=== PATIENT | female | born 1975 ===

== ENCOUNTER 2017-03-07 10:29 | Emergency (ER) | payer SELFPAY ==
[2017-03-07 10:33] VITALS: TEMP 98; O2SAT 100; BMI 30.9
--- NOTE | 2017-03-07 11:11 | ED PDOC ---
HPI: Back Time Seen by Provider: 03/07/17 10:41 Chief Complaint (Nursing): Back Pain Chief Complaint (Provider): Back Pain History Per: Patient History/Exam Limitations: no limitations Onset/Duration Of Symptoms: Days Current Symptoms Are (Timing): Still Present Additional Complaint(s): 41 y/o female presents to the emergency department with a complaint of back pain bilaterally since Tuesday (5 days). She reports that the pain is worse with movement. She is also complaining of suprapubic abdominal pain and dysuria. Reports she cannot identify any exacerbating factors. Denies fever, nausea, vomiting, diarrhea, and constipation. Past Medical History Reviewed: Historical Data, Nursing Documentation, Vital Signs Vital Signs: Last Vital Signs Temp 98 F 03/07/17 10:32 Pulse 83 03/07/17 10:32 Resp BP 143/104 H 03/07/17 10:32 Pulse Ox 100 03/07/17 10:32 - Medical History PMH: HTN - Family History Family History: States: Unknown Family Hx - Home Medications Home Medications: Ambulatory Orders Medication Instructions Recorded Nitrofurantoin Macrocrystals 100 mg PO BID #14 cap 01/14/15 [Macrobid] Sulfamethoxazole/Trimethoprim 1 tab PO BID #10 tab 03/07/17 [Bactrim DS 800 mg-160 mg] - Allergies Allergies/Adverse Reactions: Allergies Allergy/AdvReac Type Severity Reaction Status Date / Time No Known Allergies Allergy Verified 01/14/15 12:20 Review of Systems ROS Statement: Except As Marked, All Systems Reviewed And Found Negative Constitutional: Negative for: Fever Cardiovascular: Negative for: Chest Pain, Palpitations Respiratory: Negative for: Cough Gastrointestinal: Positive for: Abdominal Pain (Suprapubic region). Negative for: Nausea, Vomiting, Diarrhea, Constipation Genitourinary Female: Positive for: Dysuria. Negative for: Frequency, Incontinence, Vaginal Discharge, Vaginal Bleeding Musculoskeletal: Positive for: Back Pain (b/l). Negative for: Neck Pain Neurological: Negative for: Weakness, Numbness, Altered Mental Status, Headache Physical Exam - Reviewed Nursing Documentation Reviewed: Yes Vital Signs Reviewed: Yes - Physical Exam Appears: Positive for: Well, Non-toxic, No Acute Distress Head Exam: Positive for: ATRAUMATIC, NORMAL INSPECTION, NORMOCEPHALIC Skin: Positive for: Normal Color, Warm, Dry Neck: Positive for: Normal, Supple Cardiovascular/Chest: Positive for: Regular Rate, Rhythm. Negative for: Murmur Respiratory: Positive for: Normal Breath Sounds. Negative for: Accessory Muscle Use, Respiratory Distress Gastrointestinal/Abdominal: Positive for: Normal Exam, Soft. Negative for: Tenderness Back: Positive for: Normal Inspection, Muscle Spasm, Other (Paraspinal muscle tenderness). Negative for: L CVA Tenderness, R CVA Tenderness, Vertebral Tenderness, Decreased ROM Extremity: Positive for: Normal ROM Neurologic/Psych: Positive for: Alert, community services manager II-XII (Intact), Oriented (x3), Gait (Steady). Negative for: Motor/Sensory Deficits - ECG O2 Sat by Pulse Oximetry: 100 (RA) Pulse Ox Interpretation: Normal Medical Decision Making Medical Decision Making: Time: 10:46 Initial impression: uti Initial plan: --Toradol 30 mg IM --Urine Preg --Urinalysis --Reevaluation Scribe Attestation: Documented by Hattie Starr, acting as a scribe for Gloria Nicole MD. Provider Scribe Attestation: All medical record entries made by the Scribe were at my direction and personally dictated by me. I have reviewed the chart and agree that the record accurately reflects my personal performance of the history, physical exam, medical decision making, and the department course for this patient. I have also personally directed, reviewed, and agree with the discharge instructions and disposition. 11:30AM UA positive for leukocytes, bacteria, wbc and rbc. Patient had renal and bladder ultrasound on 02/26/17 that was negative (ordered due to hematuria). Patient is afebrile and well appearing. Ucx sent. Will dc with antibiotics. Disposition - Clinical Impression Clinical Impression: UTI (urinary tract infection) - Disposition Disposition: Routine/Home Disposition Time: 11:33 Condition: GOOD Additional Instructions: Take full course of antibiotics. Return to ED if condition worsens. Return to ED if condition worsens. Prescriptions: Sulfamethoxazole/Trimethoprim [Bactrim DS 800 mg-160 mg] 1 tab PO BID #10 tab Instructions: Urinary Tract Infection in Women (ED) Forms: [employer] (Faroese) Print Language: AZERI
[2017-03-07 11:26] LABS: RBC URINE 23 /hpf (0-3); URINE BACTERIA RARE (<OCC); URINE BILIRUBIN NEGATIVE (NEGATIVE); URINE BLOOD LARGE (NEGATIVE); URINE COLOR YELLOW (YELLOW); URINE GLUCOSE (UA) NEG (Normal); URINE KETONE NEGATIVE (NEGATIVE); URINE LEUKOCYTE ESTERASE MOD Leu/uL (Negative); URINE PROTEIN NEGATIVE (NEGATIVE); URINE UROBILINOGEN 0.2-1.0 mg/dL (0.2-1.0); WBC URINE 16 /hpf (0-5)
[2017-03-07] MEDS ORDERED: Tmp-Smz 800 mg-160 mg DS Tab PO STA (11:41)
[2017-03-07 11:55] VITALS: BP 138/88; PULSE 75; RESP 14
[2017-03-07] MEDS ORDERED: Tmp-Smz 800 mg-160 mg DS Tab PO SCH (21:00)
== END 2017-03-07 11:51 | disposition home or self-care (01) ==
LOC: H.ER 10:29
DX: N39.0 Urinary tract infection, site not specified (principal)
CPT/HCPCS: 81003; 81025; 96372; 99283; J1885

== ENCOUNTER 2018-08-02 10:04 | Emergency (ER) | payer SELFPAY ==
[2018-08-02 10:04] VITALS: BMI 30.9
[2018-08-02 10:09] VITALS: PULSE 74; RESP 18; TEMP 98.4
[2018-08-02 10:29] VITALS: O2SAT 98
--- NOTE | 2018-08-02 10:43 | ED PDOC ---
HPI: Back Time Seen by Provider: 08/02/18 10:31 Chief Complaint (Nursing): Lower Extremity Problem/Injury History Per: Patient Onset/Duration Of Symptoms: Days (3) Current Symptoms Are (Timing): Still Present Quality Of Discomfort: Aching Severity: Moderate Pain Scale Rating Of: 4 Previous Symptoms: Back Pain Associated Symptoms: None Exacerbating Factor(s): Movement Additional Complaint(s): Right sided low back pain radiating to buttock since Tuesday. Denies injury or heavy lifting. C/o dysuria but denies fever or incontinence. Past Medical History Vital Signs: Last Vital Signs Temp 98.4 F 08/02/18 10:08 Pulse 74 08/02/18 10:08 Resp 18 08/02/18 10:08 BP 137/91 H 08/02/18 10:08 Pulse Ox 98 08/02/18 10:26 - Medical History PMH: HTN - Family History Family History: States: Unknown Family Hx - Home Medications Home Medications: Ambulatory Orders Medication Instructions Recorded Nitrofurantoin Macrocrystals 100 mg PO BID #14 cap 01/14/15 [Macrobid] Sulfamethoxazole/Trimethoprim 1 tab PO BID #10 tab 03/07/17 [Bactrim DS 800 mg-160 mg] Cyclobenzaprine [Cyclobenzaprine 10 mg PO TID #10 tab 08/02/18 HCl] Naproxen [Naprosyn] 500 mg PO Q12H #20 tab 08/02/18 - Allergies Allergies/Adverse Reactions: Allergies Allergy/AdvReac Type Severity Reaction Status Date / Time No Known Allergies Allergy Verified 08/02/18 10:26 Review of Systems Constitutional: Negative for: Fever Genitourinary Female: Positive for: Dysuria Musculoskeletal: Positive for: Back Pain Neurological: Negative for: Weakness, Numbness Physical Exam - Physical Exam Appears: Positive for: Non-toxic, Uncomfortable Skin: Positive for: Normal Color, Warm, DRY Cardiovascular/Chest: Positive for: Regular Rate, Rhythm Respiratory: Positive for: CNT, Normal Breath Sounds Gastrointestinal/Abdominal: Positive for: Normal Exam, Soft. Negative for: Tenderness Back: Positive for: Normal Inspection, Muscle Spasm (Right side). Negative for: L CVA Tenderness, R CVA Tenderness, Vertebral Tenderness Neurologic/Psych: Positive for: Alert, Oriented. Negative for: Motor/Sensory Deficits - ECG O2 Sat by Pulse Oximetry: 98 - Progress Re-evaluation Time: 15:14 Condition: Improved Disposition - Clinical Impression Clinical Impression: Back sprain - Patient ED Disposition Is Patient to be Admitted: No Counseled Patient/Family Regarding: Studies Performed, Diagnosis, Need For Followup, Rx Given - Disposition Referrals: [facility] [Outside] Disposition: Routine/Home Disposition Time: 15:15 Condition: FAIR Prescriptions: Cyclobenzaprine [Cyclobenzaprine HCl] 10 mg PO TID #10 tab Naproxen [Naprosyn] 500 mg PO Q12H #20 tab Instructions: Low Back Pain in Adults Forms: [facility] (Kinyarwanda) Print Language: UGANDAN
--- NOTE | 2018-08-02 13:48 | CT ---
Date of service: 08/02/2018 PROCEDURE: CT Abdomen and Pelvis without intravenous contrast HISTORY: r/o kidney stone COMPARISON: 03/08/2017 renal ultrasound TECHNIQUE: Unenhanced. Neither IV nor oral contrast administered Radiation dose: Total exam DLP = [id number]_dlp mGy-cm. This CT exam was performed using one or more of the following dose reduction techniques: Automated exposure control, adjustment of the mA and/or kV according to patient size, and/or use of iterative reconstruction technique. FINDINGS: LOWER THORAX: Unremarkable. LIVER: Unremarkable. No gross lesion or ductal dilatation. GALLBLADDER AND BILE DUCTS: Unremarkable. PANCREAS: Mildly atrophic pancreas. SPLEEN: Unremarkable. ADRENALS: Unremarkable. No mass. KIDNEYS AND URETERS: Unremarkable. No hydronephrosis. No solid mass. VASCULATURE: Unremarkable. No aortic aneurysm. No atherosclerotic calcification or mural plaque present. BOWEL: Constipation without fecal impaction or obstruction. APPENDIX: Unremarkable. Normal appendix. PERITONEUM: Unremarkable. No free fluid. No free air. LYMPH NODES: Unremarkable. No enlarged lymph nodes. BLADDER: Unremarkable. REPRODUCTIVE: Unremarkable. BONES: No acute fracture. OTHER FINDINGS: None. IMPRESSION: No significant or acute findings to account for/ related to the clinical presentation. Additional benign and/or incidental findings described above.
[2018-08-02 16:05] VITALS: BP 132/84
== END 2018-08-02 15:16 | disposition home or self-care (01) ==
LOC: H.ER 10:04
DX: S33.5XXA Sprain of ligaments of lumbar spine, initial encounter (principal); X58.XXXA Exposure to other specified factors, initial encounter
CPT/HCPCS: 74176; 81025; 96372; 99283; J1885